=== PATIENT | male | born 1965 | race Caucasian/White ===

== ENCOUNTER 2018-01-03 17:07 | Emergency (ER) | payer SELFPAY ==
--- OUTSIDE RECORDS SUMMARY | 2018-01-03 17:09 | XMS REPORT | Continuity of Care Document ---
:1965 Author Organization Interface Problems Problem Status Onset Classification Date Comments Source Date Reported Discharge 04/16/20 04/18/2017 Surgical Diagnosis: Other 17 [facility] [place] displacement, lumbar region DM - Diabetes Problem 04/18/2017 Surgical mellitus [facility] High cholesterol Problem 04/18/2017 Surgical Specialty [facility] [place] HTN - Problem 04/18/2017 Surgical Hypertension [facility]ty [facility] [place] Pain in right hip Problem 04/18/2017 Surgical joint Specialty [facility] [place] Medications Medication Details Route Status Patient Ordering Order Source Instructions Provider Date Misc Medication 700 mL, Inactive 04/16/ Surgical Soln-IV, IV, 2016 Specialty Once, first Hospital dose 04/16/17 of [place] 14:11:00 MERCHANDISING PROFESSOR, [place] stop date 04/16/17 14:11:00 MERCHANDISING PROFESSOR Labetalol 5 mg=1 mL, Inactive 04/16/ Surgical Injection, IV 2016 Specialty Push, As Hospital Indicated PRN of [place] for [place] hypertension, first dose 04/16/17 13:49:00 MERCHANDISING PROFESSOR diphenhydrAMINE 25 mg=0.5 mL, Inactive 04/16/ Surgical Injection, IV 2017 Specialty Push, Once PRN Hospital for itching, of [place] first dose [place] 04/16/17 13:49:00 MERCHANDISING PROFESSOR hydrALAZINE 10 mg=0.5 mL, Inactive 04/16/ Surgical Injection, IV 2017 Specialty Push, As Hospital Indicated PRN of [place] [facility] [place] hypertension, first dose 04/16/17 13:49:00 MERCHANDISING PROFESSOR Xopenex 0.63 mg/3 0.63 mg=3 mL, Inactive 04/16/ Surgical mL inhalation Soln, NEB, 2017 Specialty solution Once PRN for Hospital wheezing, of [place] first dose [place] 04/16/17 13:49:00 MERCHANDISING PROFESSOR ondansetron 4 mg=2 mL, Inactive 04/16/ Surgical Injection, IV 2017 Specialty Push, q15min Hospital PRN for of [place] nausea/vomitin [place] g, order duration: 2 doses, first dose 04/16/17 13:49:00 MERCHANDISING PROFESSOR, stop date Limited # of times promethazine 12.5 mg=0.5 Inactive 04/16/ Surgical mL, Injection, 2017 Specialty IM, Once PRN Hospital for severe of [place] nausea, first [place] dose 04/16/17 13:49:00 MERCHANDISING PROFESSOR Dilaudid 0.5 mg=0.25 Inactive 04/16/ Surgical mL, Injection, 2017 Specialty IV Push, Hospital q10min PRN for of [place] pain severe [place] (7-10), first dose 04/16/17 13:49:00 MERCHANDISING PROFESSOR Demerol HCl 12.5 mg=0.25 Inactive 04/16/ Surgical mL, Injection, 2017 Specialty IV Push, Once Hospital PRN for of [place] shivers, first [place] dose 04/16/17 13:49:00 MERCHANDISING PROFESSOR Saline Lock Flush 10 mL, Soln, Inactive 04/16/ Surgical IV Push, As 2017 Specialty Indicated PRN Hospital for flush, of [place] first dose [place] 04/16/17 13:49:00 MERCHANDISING PROFESSOR LR 1,000 mL 1,000 mL, IV, Inactive 04/16/ Surgical 75 mL/hr, 2017 Specialty start date Hospital 04/16/17 of [place] 13:49:00 MERCHANDISING PROFESSOR [place] fentaNYL 50 mcg=1 mL, Inactive 04/16/ Surgical Injection, IV, 2017 Specialty Once, first Hospital dose 04/16/17 of [place] 13:47:00 MERCHANDISING PROFESSOR, [place] stop date 04/16/17 13:47:00 MERCHANDISING PROFESSOR midazolam 1 mg=1 mL, Inactive 04/16/ Surgical Injection, IV, 2017 Specialty Once, first Hospital dose 04/16/17 of [place] 13:46:00 MERCHANDISING PROFESSOR, [place] stop date 04/16/17 13:46:00 MERCHANDISING PROFESSOR fentaNYL 50 mcg=1 mL, Inactive 04/16/ Surgical Injection, IV, 2017 Specialty Once, first Hospital dose 04/16/17 of [place] 13:37:00 MERCHANDISING PROFESSOR, [place] stop date 04/16/17 13:37:00 MERCHANDISING PROFESSOR midazolam 1 mg=1 mL, Inactive 04/16/ Surgical Injection, IV, 2017 Specialty Once, first Hospital dose 04/16/17 of [place] 13:37:00 MERCHANDISING PROFESSOR, [place] stop date 04/16/17 13:37:00 MERCHANDISING PROFESSOR LR 1,000 mL 1,000 mL, IV, Inactive 04/16/ Surgical 30 mL/hr, 2017 Specialty start date Hospital 04/16/17 of [place] 12:18:00 MERCHANDISING PROFESSOR [place] Lidocaine 2% 0.2 0.2 mL, Inactive 04/16/ Surgical mL IV Start Injection, 2016 Specialty [[facility]] Subcutaneous, Hospital Once PRN for of [place] other (see [place] comment), first dose 04/16/17 12:18:00 MERCHANDISING PROFESSOR 24 HR Metformin 750 mg=1 tabs, Active 04/12/ Surgical hydrochloride 750 Oral, Daily, 2016 Specialty MG Extended Diabetes Hospital Release Tablet of [place] lisinopril 20 mg 20 mg=1 tabs, Active 04/12/ Surgical oral tablet Oral, Daily, 2016 [facility] Hypertension [facility] Allergies, Adverse Reactions, Alerts Substance Category Reaction Severity Reaction Status Date Comments Source type Reported No Known Assertion Drug Surgical Medication allergy Specialty Allergies [facility] Immunizations Immunization Date Given Site Status Last Updated Comments Source Results Order Name Results Value Reference Date Interpretation Comments Source Range LABORATORY Blood 205 74 - 106 04/16/ Surgical Glucose, mg/dL 2016 [facility] Capillary [facility] Vital Signs Vital Sign Value Date Comments Source Respitory Rate 20 04/16/2017 Surgical [facility] Peripheral Pulse Rate 61 04/16/2017 Surgical [facility] Heart Rate 61 04/16/2017 Surgical [facility] Respitory Rate 14 04/16/2017 Surgical [facility] Systolic (mm Hg) 113 04/16/2017 Surgical [facility] Diastolic (mm Hg) 81 04/16/2017 Surgical [facility] Heart Rate 62 04/16/2017 Surgical [facility] Systolic (mm Hg) 136 04/16/2017 Surgical [facility] Diastolic (mm Hg) 79 04/16/2017 Surgical Specialty [facility] Respitory Rate 16 04/16/2017 Surgical [facility] Temperature Oral (F) 36.6 Mar[place] 04/16/2017 Surgical [facility] Heart Rate 65 04/16/2017 Surgical Specialty [facility] Systolic (mm Hg) 110 04/16/2017 Surgical [facility] Diastolic (mm Hg) 79 04/16/2017 Surgical Specialty [facility] Weight Measured 156.1 04/16/2017 Surgical Specialty [facility] Height 185.42 cm 04/16/2017 Surgical [facility] Peripheral Pulse Rate 69 04/16/2017 Surgical Specialty [facility] Temperature Oral (F) 36.6 Marilee 04/16/2017 Surgical Specialty [facility] Weight Measured 156.09 04/12/2017 Surgical [facility] Height 185.42 cm 04/12/2017 Surgical [facility] Encounters Location Location Encounter Encounter Reason Attending ADM DC Status Source Details Type Number For Provider Date Date [facility] [id number] Marcio 04/16 04/16 Surgical Elijah Steven /2016 Specialty Surgical [facility] Procedures Procedure Code Date Perfomer Comments Source ASPIRATION MAJOR 04/16/2017 auto-populated Surgical JOINT/BURSA W/O from documented Specialty ULTRASOUND GUIDANCE surgical case [facility] [place] (Right)<sup>1</sup> FLUOROSCOPIC 04/16/2017 auto-populated Surgical GUIDANCE AND from documented Specialty LOCALIZATION OF surgical case [facility] NEEDLE OR CATHETER [place] TIP; SPINE INJ. 89051 (Right)<sup>2</sup> Left Hip 05/31/2014 Surgical Replacement [facility]
--- OUTSIDE RECORDS SUMMARY | 2018-01-03 17:09 | XMS REPORT | Summary of Care ---
:1965 Author Organization [facility] Address [address] [place] [address] Encounter [facility] [id number] Date(s): 04/16/17 - 04/16/17 [facility] [address] [place], [place] [phone] Discharge Diagnosis: Other intervertebral disc displacement, lumbar region Discharge Disposition: Discharged to Home or Self Care Attending Physician: Canon WILSON, Marcio Velasquez Admitting Physician: Marcio Harris MD Vital Signs Most recent to oldest 1 2 3 [Reference Range]: Temperature Oral [35.8-37.3 36.6 DegC DegC] (04/16/17 12:15 PM) Temperature Temporal Artery 36.6 DegC [36.3-37.8 DegC] (04/16/17 2:10 PM) Temperature Temporal 97.88 Fahrenheit (04/16/17 2:10 PM) Peripheral Pulse Rate 61 bpm 69 bpm [55-105 bpm] (04/16/17 3:10 PM) (04/16/17 12:15 PM) Heart Rate Monitored 61 bpm 62 bpm 65 bpm [60-100 bpm] (04/16/17 2:30 PM) (04/16/17 2:20 PM) (04/16/17 2:10 PM) Respiratory Rate [12-20] 20 14 16 (04/16/17 3:10 PM) (04/16/17 2:30 PM) (04/16/17 2:20 PM) SpO2 [90-100 %] 96 % 97 % 97 % (04/16/17 3:10 PM) (04/16/17 2:30 PM) (04/16/17 2:20 PM) Blood Pressure 113/81 mmHg 136/79 mmHg 110/79 mmHg [110-120/65-85 mmHg] (04/16/17 2:30 PM) *HI* (04/16/17 2:10 PM) (04/16/17 2:20 PM) Mean Arterial Pressure, 91.7 mmHg 98 mmHg 89.3 mmHg Cuff (04/16/17 2:30 PM) (04/16/17 2:20 PM) (04/16/17 2:10 PM) Height 185.42 cm 185.42 cm (04/16/17 12:15 PM) (04/12/17 8:29 AM) Height/Length Dosing 185.42 cm 185.42 cm (04/16/17 12:15 PM) (04/12/17 8:29 AM) Height Inches 73 in 73 in (04/16/17 12:15 PM) (04/12/17 8:29 AM) Weight 156.1 kg 156.09 kg (04/16/17 12:15 PM) (04/12/17 8:29 AM) Weight Dosing 156.1 kg 156.09 kg (04/16/17 12:15 PM) (04/12/17 8:29 AM) Weight Pounds 343 lb 343 lb (04/16/17 12:15 PM) (04/12/17 8:29 AM) Body Mass Index 45.4 kg/m2 45.4 kg/m2 (04/16/17 12:15 PM) (04/12/17 8:29 AM) Problem List Condition Effective Dates Status Health Status Informant DM - Diabetes mellitus(Confirmed) Active High cholesterol(Confirmed) Active HTN - Hypertension(Confirmed) Active Pain in right hip joint(Confirmed) Active Allergies, Adverse Reactions, Alerts No Known Medication Allergies Medications Demerol HCl 12.5 mg=0.25 mL, Injection, IV Push, Once PRN for shivers, first dose 04/16/17 13:49:00 SAW EDGE FUSER CIRCULAR Start Date: 04/16/17 Stop Date: 04/16/17 Status: DiscontinuedDilaudid 0.5 mg=0.25 mL, Injection, IV Push, q10min PRN for pain severe (7-10), first dose 04/16/17 13:49:00 SAW EDGE [employer]USER [employer]CULAR Start Date: 04/16/17 Stop Date: 04/16/17 Status: DiscontinueddiphenhydrAMINE 25 mg=0.5 mL, Injection, IV Push, Once PRN for itching, first dose 04/16/17 13: 49:00 SAW EDGE [employer]USER [employer]CULAR Start Date: 04/16/17 Stop Date: 04/16/17 Status: DiscontinuedfentaNYL 50 mcg=1 mL, Injection, IV, Once, first dose 04/16/17 13:47:00 SAW EDGE FUSER CIRCULAR, stop date 13:47:00 SAW EDGE FUSER [employer]CULAR Start Date: 04/16/17 Stop Date: 04/16/17 Status: CompletedfentaNYL 50 mcg=1 mL, Injection, IV, Once, first dose 04/16/17 13:37:00 SAW EDGE FUSER CIRCULAR, stop date 13:37:00 SAW EDGE [employer]USER [employer]CULAR Start Date: 04/16/17 Stop Date: 04/16/17 Status: CompletedhydrALAZINE 10 mg=0.5 mL, Injection, IV Push, As Indicated PRN for hypertension, first dose 04/16/17 13:49:00 SAW EDGE [employer]USER CIRCULAR Start Date: 04/16/17 Stop Date: 04/16/17 Status: Discontinuedlabetalol 5 mg=1 mL, Injection, IV Push, As Indicated PRN for hypertension, first dose 13:49:00 SAW EDGE [employer]USER [employer]CULAR Start Date: 04/16/17 Stop Date: 04/16/17 Status: DiscontinuedLidocaine 2% 0.2 mL IV Start [[place]] 0.2 mL, Injection, Subcutaneous, Once PRN for other (see comment), first dose 12:18:00 SAW EDGE FUSER CIRCULAR Start Date: 04/16/17 Stop Date: 04/16/17 Status: Completedlisinopril 20 mg oral tablet 20 mg=1 tabs, Oral, Daily, Hypertension Start Date: 04/12/17 Stop Date: 04/26/17 Status: OrderedLR 1,000 mL 1,000 mL, IV, 30 mL/hr, start date 04/16/17 12:18:00 SAW EDGE [employer]USER [employer]CULAR Start Date: 04/16/17 Stop Date: 04/16/17 Status: DiscontinuedLR 1,000 mL 1,000 mL, IV, 75 mL/hr, start date 04/16/17 13:49:00 SAW EDGE [employer]USER [employer]CULAR Start Date: 04/16/17 Stop Date: 04/16/17 Status: DiscontinuedmetFORMIN 750 mg oral tablet, extended release 750 mg=1 tabs, Oral, Daily, Diabetes Start Date: 04/12/17 Stop Date: 04/26/17 Status: Orderedmidazolam 1 mg=1 mL, Injection, IV, Once, first dose 04/16/17 13:46:00 SAW EDGE [employer]USER CIRCULAR, stop date 13:46:00 SAW EDGE [employer]USER [employer]CULAR Start Date: 04/16/17 Stop Date: 04/16/17 Status: Completedmidazolam 1 mg=1 mL, Injection, IV, Once, first dose 04/16/17 13:37:00 SAW EDGE FUSER CIRCULAR, stop date 13:37:00 SAW EDGE FUSER CIRCULAR Start Date: 04/16/17 Stop Date: 04/16/17 Status: CompletedMisc Medication 700 mL, Soln-IV, IV, Once, first dose 04/16/17 14:11:00 SAW EDGE FUSER [employer]CULAR, stop date 04/16/17 14:11:00 SAW EDGE FUSER [employer]CULAR Start Date: 04/16/17 Stop Date: 04/16/17 Status: Completedondansetron 4 mg=2 mL, Injection, IV Push, q15min PRN for nausea/vomiting, order duration: 2 doses, first dose 04/16/17 13:49:00 SAW EDGE FUSER CIRCULAR, stop date Limited # of times Start Date: 04/16/17 Stop Date: 04/16/17 Status: Discontinuedpromethazine 12.5 mg=0.5 mL, Injection, IM, Once PRN for severe nausea, first dose 04/16/17 13:49:00 SAW EDGE FUSER [employer]CULAR Start Date: 04/16/17 Stop Date: 04/16/17 Status: DiscontinuedSaline Lock Flush 10 mL, Soln, IV Push, As Indicated PRN for flush, first dose 04/16/17 13:49:00 SAW EDGE FUSER [employer]CULAR Start Date: 04/16/17 Stop Date: 04/16/17 Status: DiscontinuedXopenex 0.63 mg/3 mL inhalation solution 0.63 mg=3 mL, Soln, NEB, Once PRN for wheezing, first dose 04/16/17 13:49:00 SAW EDGE FUSER [employer]CULAR Start Date: 04/16/17 Stop Date: 04/16/17 Status: Discontinued Results LABORATORY Most recent to oldest [Reference Range]: 1 Blood Glucose, Capillary [74-106 mg/dL] 205 mg/dL *HI* (04/16/17 12:28 PM) Immunizations No data available for this section Procedures Procedure Date Related Diagnosis Body Site ASPIRATION MAJOR JOINT/BURSA W/O ULTRASOUND 04/16/17 GUIDANCE (Right)1 FLUOROSCOPIC GUIDANCE AND LOCALIZATION OF NEEDLE 04/16/17 OR CATHETER TIP; SPINE INJ. 15748 (Right)2 Left Hip Replacement 2014 1auto-populated from documented surgical [id number] from documented surgical case Social History Social History Type Response Assessment and Plan No data available for this section
[2018-01-03] MEDS ORDERED: METHYLPREDNISOLONE 125 MG INJ ONE (18:06)
[2018-01-03] MEDS ORDERED: HYDROCODONE/APAP 10/325 TAB ONE (18:07)
[2018-01-03] MEDS ORDERED: KETOROLAC 30 MG/ML INJ ONE (18:08)
[2018-01-03] MEDS ORDERED: ONDANSETRON 4 MG/2 ML VIAL ONE (18:08)
[2018-01-03] MEDS ORDERED: MORPHINE 4 MG/ML SYR ONE (18:08)
--- NOTE | 2018-01-03 19:00 | EDPHYS ---
Physician Documentation [facility] Name: Sea Zurita Age: 52 yrs Sex: Male : 1965 Arrival Date: 01/03/2018 Time: 17:09 Bed 28 Private MD: ED Physician Napoleon Farias HPI: 01/03 18:52 This 52 yrs old Male presents to ER via Ambulatory with complaints of Hip kdr Pain. 18:52 The patient or guardian reports decreased range of motion, pain. that occurred at home, kdr sustained from Increase activity There is no obvious deformity, The patient is able to self ambulate. The patient is able to bear partial body weight. There is no radiation of the patient's discomfort. The complaints affect the right femoral area and right hip. Onset: The symptoms/episode began/occurred gradually, 2 week(s) ago. Modifying factors: The symptoms are alleviated by remaining still, the symptoms are aggravated by any movement, external rotation, weight bearing. Associated signs and symptoms: Loss of consciousness: the patient experienced no loss of consciousness, Pertinent positives: None. Pertinent negatives: fever, shortness of breath, vomiting, weakness. Severity of symptoms: At their worst the symptoms were moderate, in the emergency department the symptoms are unchanged. The patient has experienced similar episodes in the past, a few times. The patient has not recently seen a physician, The patient has had similar problems with the left hip prior to replacement. Historical: - Allergies: 17:13 No Known Allergies; la1 - PMHx: 17:13 Hypertension; Diabetes - NIDDM; la1 - PSHx: 17:13 left hip; la1 - Immunization history:: Adult Immunizations up to date. - Social history:: Smoking status: Patient/guardian denies using tobacco. - Ebola Screening: : No symptoms or risks identified at this time. ROS: 18:52 Constitutional: Negative for fever, chills, and weight loss, Eyes: Negative for injury, kdr pain, redness, and discharge, Neck: Negative for injury, pain, and swelling, Cardiovascular: Negative for chest pain, palpitations, and edema, Respiratory: Negative for shortness of breath, cough, wheezing, and pleuritic chest pain, Abdomen/GI: Negative for abdominal pain, nausea, vomiting, diarrhea, and constipation, Back: Negative for injury and pain, : Negative for injury, bleeding, discharge, and swelling, Skin: Negative for injury, rash, and discoloration, Neuro: Negative for headache, weakness, numbness, tingling, and seizure activity. Psych: Negative for depression, anxiety, suicide ideation, homicidal ideation, and hallucinations, Allergy/Immunology: Negative for hives, rash, and allergies, Endocrine: Negative for neck swelling, polydipsia, polyuria, polyphagia, and marked weight changes, Hematologic/Lymphatic: Negative for swollen nodes, abnormal bleeding, and unusual bruising. 18:52 MS/extremity: Positive for decreased range of motion, pain, Negative for injury or acute deformity, contusion, deformity, paresthesias, puncture, rash. Exam: 18:52 Constitutional: This is a well developed, well nourished patient who is awake, alert, kdr and in no acute distress. Head/Face: Normocephalic, atraumatic. 18:52 Musculoskeletal/extremity: Extremities: grossly normal except: noted in the right femoral area, right inguinal area, right iliac crest and right hip: ROM: limited active range of motion, limited passive range of motion, in the right leg, Circulation is intact in all extremities. Sensation intact. Joints: the right hip displays limited range of motion, painful range of motion. Vital Signs: 17:13 BP 144 / 93; Pulse 67; Resp 19; Temp 98.9(TE); Pulse Ox 100% on R/A; Weight 195.04 kg; la1 Height 5 ft. 10 in. (177.80 cm); 18:35 BP 139 / 86; Pulse 71; Resp 17; Pulse Ox 100% on R/A; Pain 6/10; ed1 17:13 Body Mass Index 61.70 (195.04 kg, 177.80 cm) la1 MDM: 18:52 Data reviewed: vital signs, nurses notes, radiologic studies. Counseling: I had a kdr detailed discussion with the patient and/or guardian regarding: the historical points, exam findings, and any diagnostic results supporting the discharge/admit diagnosis, radiology results, the need for outpatient follow up. Special discussion: I discussed with the patient/guardian in detail that at this point there is no indication for admission to the hospital. It is understood, however, that if the symptoms persist or worsen the patient needs to return immediately for re-evaluation. 18:59 Patient medically screened. kdr 01/03 17:43 Order name: Hip Right 2 View XRAY kdr Administered Medications: 18:26 Drug: TORadol 30 mg Route: IVP; Site: left antecubital; ss 19:09 Follow up: Response: No adverse reaction; Pain is decreased ed1 18:27 Not Given (Patient Refused): morphine 4 mg IVP once ss 18:27 Drug: Zofran 4 mg Route: IVP; Site: left antecubital; ss 19:09 Follow up: Response: No adverse reaction; Nausea is decreased ed1 18:27 Not Given (Patient Refused): Epes 10 mg-325 mg 1 tabs PO once ss 18:27 Drug: SOLU-Medrol 125 mg Route: IVP; Site: left antecubital; ss 19:09 Follow up: Response: No adverse reaction ed1 18:27 Drug: Pepcid 20 mg Route: IVP; Site: left antecubital; ss 19:09 Follow up: Response: No adverse reaction ed1 Disposition: 01/03/18 18:59 Discharged to Home. Impression: Arthralgia - right hip, Pain in right hip. - Condition is Stable. - Discharge Instructions: Joint Pain, Musculoskeletal Pain, Hip Pain. - Prescriptions for ketorolac 10 mg Oral tablet - take 1 tablet by ORAL route every 6 hours As needed not to exceed 40 mg in 24hrs; 16 tablet. Tylenol- Codeine #3 300-30 mg Oral Tablet - take 2 tablets by ORAL route every 6 hours As needed; 16 tablet. - Medication Reconciliation Form, Thank You Letter, Prescription Opioid Use form. - Follow up: Private Physician; When: 2 - 3 days; Reason: If symptoms return, Further diagnostic work-up, Recheck today's complaints, Continuance of care, Re-evaluation by your physician. - Problem is an ongoing problem. - Symptoms have improved. Signatures: Dispatcher [employer] EDMS Napoleon Farias MD MD kdr Smirch, Shelby RN RN Kendy Kaufman LVN PRIMER CHARGER ed1 Jay Bain RN RN la1 Corrections: (The following items were deleted from the chart) 19:11 18:59 01/03/2018 18:59 Discharged to Home. Impression: Arthralgia - right hip; Pain in ed1 right hip. Condition is Stable. Forms are Medication Reconciliation Form, Thank You Letter, Antibiotic Education, Prescription Opioid Use. Follow up: Private Physician; When: 2 - 3 days; Reason: If symptoms return, Further diagnostic work-up, Recheck today's complaints, Continuance of care, Re-evaluation by your physician. Problem is an ongoing problem. Symptoms have improved. kdr
--- NOTE | 2018-01-03 19:00 | ER ---
Nurse's Notes [facility] Name: Sea Zurita Age: 52 yrs Sex: Male : 1965 Arrival Date: 01/03/2018 Time: 17:09 Bed 28 Private MD: Diagnosis: Arthralgia - right hip;Pain in right hip Presentation: 01/03 17:12 Presenting complaint: Patient states: right hip pain for one week, no trauma. Previous la1 left hip replacement in 2014. Transition of care: patient was not received from another setting of care. Onset of symptoms was January 03, 2018. Risk Assessment: Do you want to hurt yourself or someone else? Patient reports no desire to harm self or others. Initial Sepsis Screen: Does the patient meet any 2 criteria? No. Patient's initial sepsis screen is negative. Does the patient have a suspected source of infection? No. Patient's initial sepsis screen is negative. Care prior to arrival: None. 17:12 Method Of Arrival: Ambulatory la1 17:12 Acuity: KELSEY 4 la1 Historical: - Allergies: 17:13 No Known Allergies; la1 - PMHx: 17:13 Hypertension; Diabetes - NIDDM; la1 - PSHx: 17:13 left hip; la1 - Immunization history:: Adult Immunizations up to date. - Social history:: Smoking status: Patient/guardian denies using tobacco. - Ebola Screening: : No symptoms or risks identified at this time. Screenin:23 Abuse screen: Denies threats or abuse. Denies injuries from another. Nutritional ed1 screening: No deficits noted. Tuberculosis screening: No symptoms or risk factors identified. Fall Risk None identified. Assessment: 17:23 General: Appears in no apparent distress. Behavior is calm, cooperative. Pain: ed1 Complains of pain in right hip Pain does not radiate. Quality of pain is described as aching, Pain began 2-3 days ago. Is continuous. Neuro: Level of Consciousness is awake, alert, obeys commands, Oriented to person, place, time, situation. Cardiovascular: Denies chest pain, Heart tones S1 S2 present. Respiratory: Airway is patent Respiratory effort is even, unlabored, Respiratory pattern is regular, symmetrical, Breath sounds are clear bilaterally. GI: No signs and/or symptoms were reported involving the gastrointestinal system. : No signs and/or symptoms were reported regarding the genitourinary system. EENT: No signs and/or symptoms were reported regarding the EENT system. Derm: Skin is pink, warm \T\ dry. Musculoskeletal: Circulation, motion, and sensation intact. Range of motion: intact in all extremities, Reports pain in right hip. 17:25 General: The previous assessment is accurate. Call light remains within reach. . ss 18:35 Reassessment: Patient appears in no apparent distress at this time. No changes from ed1 previously documented assessment. Patient and/or family updated on plan of care and expected duration. Pain level reassessed. Patient is alert, oriented x 3, equal unlabored respirations, skin warm/dry/pink. Patient states symptoms have not improved. Vital Signs: 17:13 BP 144 / 93; Pulse 67; Resp 19; Temp 98.9(TE); Pulse Ox 100% on R/A; Weight 195.04 kg; la1 Height 5 ft. 10 in. (177.80 cm); 18:35 BP 139 / 86; Pulse 71; Resp 17; Pulse Ox 100% on R/A; Pain 6/10; ed1 17:13 Body Mass Index 61.70 (195.04 kg, 177.80 cm) la1 ED Course: 17:09 Patient arrived in ED. es 17:13 Triage completed. la1 17:13 Arm band placed on right wrist. la1 17:18 Napoleon Farias MD is Attending Physician. kdr 17:23 Kendy Kaufman LVN is Primary Nurse. ed1 17:23 Patient has correct armband on for positive identification. Placed in gown. Bed in low ed1 position. Call light in reach. 17:55 Inserted saline lock: 20 gauge in left antecubital area, using aseptic technique. jp3 17:56 Patient moved to radiology via wheelchair. ml 18:03 Patient moved to radiology via wheelchair. ml 18:03 X-ray completed. Patient tolerated procedure well. ml 18:04 Hip Right 2 View XRAY In Process Unspecified. EDMS 19:10 No provider procedures requiring assistance completed. IV discontinued, intact, ed1 bleeding controlled, No redness/swelling at site. Pressure dressing applied. Administered Medications: 18:26 Drug: TORadol 30 mg Route: IVP; Site: left antecubital; ss 19:09 Follow up: Response: No adverse reaction; Pain is decreased ed1 18:27 Not Given (Patient Refused): morphine 4 mg IVP once ss 18:27 Drug: Zofran 4 mg Route: IVP; Site: left antecubital; ss 19:09 Follow up: Response: No adverse reaction; Nausea is decreased ed1 18:27 Not Given (Patient Refused): Gifford 10 mg-325 mg 1 tabs PO once ss 18:27 Drug: SOLU-Medrol 125 mg Route: IVP; Site: left antecubital; ss 19:09 Follow up: Response: No adverse reaction ed1 18:27 Drug: Pepcid 20 mg Route: IVP; Site: left antecubital; ss 19:09 Follow up: Response: No adverse reaction ed1 Outcome: 18:59 Discharge ordered by . kdr 19:10 Discharged to home ambulatory. ed1 19:10 Condition: good 19:10 Discharge instructions given to patient, Instructed on discharge instructions, follow up and referral plans. medication usage, Demonstrated understanding of instructions, follow-up care, medications, Prescriptions given X 2. 19:11 Patient left the ED. ed1 Signatures: Dispatcher [employer] EDMS Napoleon Farias MD MD kdr Salyer, Edna es Lopez, Melissa ml Smirch, Shelby, RN RN ss Riggs, Erika, LVN LVN ed1 Jay Bain RN RN laShin Valerio jp3
--- NOTE | 2018-01-03 19:10 | RAD REPORT ---
EXAM DESCRIPTION: RAD - Hip Right 2 View - 01/03/2018 6:10 pm CLINICAL HISTORY: Right hip pain, diabetes COMPARISON: None. FINDINGS: AP and frog-leg views of the right hip were obtained. Positioning is not optimal. Patient 's large body habitus results in a substantial amount of soft tissue overlying the hip joint. This li mits detail. No acute fracture is suspected. Patient does have significant degenerative change. Effacement of the joint space is seen. There are sclerotic changes and probably degenerative cystic changes along the femoral head superior acetabulum articulation. AVN cannot be accurately assessed. Flattening of the s uperior femoral condyles is probably present but cannot be accurately assessed. Partially imaged right hemipelvis shows no significant finding. IMPRESSION: Exam is very limited. Patient has evidence for very substantial hip joint degenerative c hange. Acute fracture is not suspected.
== END 2018-01-03 19:11 | disposition home or self-care (01) ==
LOC: ER 17:07
DX: M25.551 Pain in right hip (principal); I10 Essential (primary) hypertension
CPT/HCPCS: 96374; 96375; 99284; J2405; J2930